=== PATIENT | female | born 1980 | race African-American/Black ===

== ENCOUNTER 2022-03-11 10:19 | Emergency (ER) | payer MEDICAID ==
[~2022-03-11] VITALS: Ht 154.9 cm; Wt 66.0 kg
[2022-03-11] MEDS ORDERED: LEVO25TA7 PO (10:33)
[2022-03-11] MEDS ORDERED: TRIA1TAB92 PO (10:33)
[2022-03-11] MEDS ORDERED: ACETAMINOPHEN 325MG TABLET PO STA (10:48)
[2022-03-11] MEDS ORDERED: IBUPROFEN 600MG TABLET PO STA (10:48)
[2022-03-11 11:46] VITALS: BP 148/102
[2022-03-11 11:59] LABS: BASOPHILS % 0.6 % (0.0-2.0); EOSINOPHILS % 2.3 % (0.0-5.0); HEMATOCRIT. 40.1 % (36.0-48.0); HEMOGLOBIN. 13.3 g/dL (12.0-16.0); MEAN CORPUSCULAR VOLUME 87.3 fL (81.0-99.0); MEAN PLATELET VOLUME 8.7 fl (7.4-10.4); MONOCYTES % 9.6 % (2.0-8.0); NEUTROPHILS % 49.5 % (40.0-76.0); PLATELET 298 x1000/uL (130-400); RED BLOOD CELL COUNT 4.59 mill/uL (4.2-5.4)
[2022-03-11 12:05] LABS: CLARITY URINE TURBID (CLEAR); COLOR URINE DARK YELLOW (YELLOW); KETONES URINE 1+ (NEGATIVE); LEUKOCYTE ESTERASE URINE NEGATIVE (NEGATIVE); NITRITE URINE NEGATIVE (NEGATIVE); OCCULT BLOOD URINE 3+ (NEGATIVE); PH URINE 5.5 (4.5-8.0); PROTEIN URINE 1+ (NEGATIVE); SPECIFIC GRAVITY URINE 1.043 (1.005-1.030)
[2022-03-11 12:19] LABS: CHLORIDE 106 mEq/L (98-107)
== END 2022-03-11 12:48 | disposition home or self-care (01) ==
LOC: ER 10:19
DX: D21.9 Benign neoplasm of connective and other soft tissue, unspecified (principal); I10 Essential (primary) hypertension; Z86.39 Personal history of other endocrine, nutritional and metabolic disease
CPT/HCPCS: 36415; 76830; 76856; 80053; 81003; 81025; 85025; 99284

== ENCOUNTER 2022-03-15 14:26 | Emergency (ER) | payer MEDICAID ==
[~2022-03-15] VITALS: Ht 154.9 cm; Wt 64.0 kg
[~2022-03-15 14:26] MED LIST: LEVO25TA7 PO; TRIA1TAB92 PO
[2022-03-15 14:36] VITALS: BP 134/86
== END 2022-03-15 19:59 | disposition left against medical advice (07) ==
LOC: ER 14:32
DX: Z53.21 Procedure and treatment not carried out due to patient leaving prior to being seen by health care provider (principal)

== ENCOUNTER 2022-03-17 14:46 | Emergency (ER) | payer MEDICAID ==
[~2022-03-17] VITALS: Ht 154.9 cm; Wt 64.0 kg
[2022-03-17] MEDS ORDERED: KETOROLAC 60MG/2ML VIAL IM ONE (16:30)
[2022-03-17 17:05] VITALS: BP 126/75
== END 2022-03-17 17:06 | disposition home or self-care (01) ==
LOC: ER 14:46
DX: R51.9 Headache, unspecified (principal); M54.2 Cervicalgia; Z86.39 Personal history of other endocrine, nutritional and metabolic disease; V49.40XA Driver injured in collision with unspecified motor vehicles in traffic accident, initial encounter; Y93.89 Activity, other specified; Y92.89 Other specified places as the place of occurrence of the external cause; Y99.8 Other external cause status
CPT/HCPCS: 96372; 99283